=== PATIENT | female | born 1990 | race Caucasian/White ===

== ENCOUNTER 2016-06-12 04:15 | Emergency (ER) | payer MEDICAID ==
--- NOTE | 2016-06-12 08:15 | PD ---
HPI Chief Complaint Chronic IV drug use, wants to get into rehabilitation and needs an ultrasound to do so. She presents here to get that ultrasound so she can get into the rehabilitation facility Date Seen: Jun 12, 2016 Travel History International Travel<30 Days: No Contact w/Intl Traveler<30Days: No Known Affected Area: No History of Present Illness HPI Patient is a 27 week intrauterine who has a long-standing history of IV and oral drug use. She presents from out of town on the was in [place] and was relocated here. She has had the some care in [place] but minimal and disorganized. She presents to get an ultrasound to document viability before she can get into the rehabilitation facility and get off drugs. Patient admits to using IV heroin since the age of 12 and she used to just a few hours ago. Also takes Dilaudid on a regular basis. She states the baby is moving actively she's had no problem with her so far denies bleeding rupture the membranes or abdominal pain. heart tones are within normal limits and the strip is reactive now Para: 2 : 3 History Past Medical History Narrative Medical Hepatitis C, as a result of long-standing IV drug use Obstetric History Obstetric History 2 vaginal deliveries Social History Alcohol Use: Yes Tobacco Use: Yes Substance Abuse: Yes Allergies-Medications Comments no Known allergies Review of Systems General / Constitutional: No: Fever, Weight Gain, Chills, Other Physical Exam Narrative GENERAL: Well-nourished, well-developed patient. SKIN: Warm and dry. HEAD: Normocephalic and atraumatic. EYES: No scleral icterus. No injection or drainage. ENT: No nasal drainage noted. Mucous membranes pink. Airway patent. NECK: Supple, trachea midline. No JVD. CARDIOVASCULAR: Regular rate and rhythm without murmurs, gallops, or rubs. RESPIRATORY: Breath sounds equal bilaterally. No accessory muscle use. BREASTS: Bilateral exam showed no masses , no retractions, no nipple discharge. ABDOMEN/GI: Abdomen soft, non-tender, bowel sounds present, no rebound, no guarding Gravid to [28-] weeks size Fundal Height: [27 cm-] GENITOURINARY: External Genitalia: intact and normal in appearance BUS glands: [-] Cervix: [-] Not examined Dilatation: [-] Effacement: [-] Station: [-] Presentation: [-] Membranes: [intact ] Uterine Contractions: [-none] FHT's: Category: [1-] Baseline: [133-] Reactive: [-yes] Variability: [-] Decels: [none-] EXTREMITIES: No cyanosis or edema. BACK: Nontender without obvious deformity. No CVA tenderness. NEUROLOGICAL: Awake and alert. Motor and sensory grossly within normal limits. Five out of 5 muscle strength in all muscle groups. Normal speech. Data Data Orders Diet Regular Basic (06/12/16 Breakfast) Us Ob Limited (06/12/16 ) Mrsa Pcr Surveillance (06/12/16 06:59) [facility] Medical Record Reviewed: No Interpretation(s) 27 week intrauterine with long-standing IV drug use and abuse, she presents basically to get an ultrasound to document viability so she can get into drug rehabilitation, her last use of IV heroin when was this morning Plan Plan to order the ultrasound to get the patient into rehabilitation as soon as possible, also these organizations will facilitate patient getting into care as well Diagnosis Diagnosis: Primary Impression: Drug abuse during Disposition: 70 TRANSFER TO OTHER FACILITY Condition: Stable Patient Instructions: General Instructions Departure Forms: Tests/Procedures Kristian Alarcon II, MD Jun 12, 2016 08:15
[2016-08-03] MEDS ORDERED: BUPR2SUB SL (15:24)
== END 2016-06-12 09:37 | disposition short-term general hospital (02) ==
LOC: HOBED 04:15
DX: O99.322 Drug use complicating pregnancy, second trimester (principal); F11.10 Opioid abuse, uncomplicated; B19.20 Unspecified viral hepatitis C without hepatic coma; Z72.0 Tobacco use; Z3A.27 27 weeks gestation of pregnancy
CPT/HCPCS: 76816; 87641

== ENCOUNTER → 2016-08-10 | Outpatient (CLI) | payer OTHER ==
[~2016-08-10] MED LIST: BUPR2SUB SL; BUPR8SUB SL; CALNTAB PO; CEPH500C PO; IBUP800T23 PO; SENN1TAB PO
== END ==
LOC: HPND 13:44
PROVIDERS: ATTEND Obstetrics & Gynecology
DX: O99.323 Drug use complicating pregnancy, third trimester (principal); O09.33 Supervision of pregnancy with insufficient antenatal care, third trimester; O98.513 Other viral diseases complicating pregnancy, third trimester
CPT/HCPCS: 76811

== ENCOUNTER 2016-09-04 04:08 | Inpatient (IN) | payer OTHER ==
[2016-09-04] VITALS (72 sets, daily range): BP systolic 107–149; BP diastolic 48–87; PULSE 56–109; RESP 16–20; TEMP 97.9–98.6; O2SAT 100
[~2016-09-04] VITALS: Ht 160 cm; Wt 72.6 kg
[~2016-09-04 04:08] MED LIST changes: -BUPR8SUB SL; -CALNTAB PO; -CEPH500C PO; -IBUP800T23 PO; -SENN1TAB PO
[2016-09-04] MEDS ORDERED: LACTATED RINGER'S 1000 ML INJ 1,000 ML IV PRN (04:54)
--- NOTE | 2016-09-04 04:54 | PD ---
HPI Chief Complaint Contractions Date Seen: Sep 04, 2016 Travel History International Travel<30 Days: No Contact w/Intl Traveler<30Days: No Known Affected Area: No History of Present Illness HPI 26-year-old female who is at 39 weeks 2 days based on limited criteria this patient has had intermittent care. She moved from [place] to [facility] and has an extensive history of IV drug use including heroin and Dilaudid this has been presently men maintain on Subutex 8 mg a day. He has a history of a cardiac ablation after some sort of cardiac event during her induction and [facility] 7 years ago. Group B strep is positive she she has a history of MRSA. Para: 2 : 5 : 2 History Past Medical History Narrative Medical Bipolar Cardiac ablation Hepatitis C positive Long-standing history of IV drug use Obstetric History Obstetric History Spontaneous vaginal delivery 2 Past Surgical History Surgical History: No Previous Surgery Family History Family History: Negative Social History Alcohol Use: No Tobacco Use: No Substance Abuse: No Allergies-Medications (Allergen,Severity, Reaction): Coded Allergies: No Known Allergies (Unverified , 08/03/16) Home Meds Active Scripts Vit W/ Fe Polysacch C (Vitafol Ultra 29-0.6-0.4-200 mg)1 Cap Cap Sample #2 Prov:Shereen Grossman 08/03/16 Reported Medications Buprenorphine 2 Mg Subl2 Mg SL BID 08/03/16 Review of Systems Except as stated in HPI: all other systems reviewed are Neg Physical Exam Narrative GENERAL: Well-nourished, well-developed patient. SKIN: Warm and dry. HEAD: Normocephalic and atraumatic. EYES: No scleral icterus. No injection or drainage. ENT: No nasal drainage noted. Mucous membranes pink. Airway patent. NECK: Supple, trachea midline. No JVD. CARDIOVASCULAR: Regular rate and rhythm without murmurs, gallops, or rubs. RESPIRATORY: Breath sounds equal bilaterally. No accessory muscle use. BREASTS: Bilateral exam showed no masses , no retractions, no nipple discharge. ABDOMEN/GI: Abdomen soft, non-tender, bowel sounds present, no rebound, no guarding Gravid to [-] weeks size Fundal Height: [-38] GENITOURINARY: External Genitalia: intact and normal in appearance BUS glands: [Normal-] Cervix: [-4] Dilatation: [4 cm] Effacement: [-90] Station: [-1-] Presentation: [-] Vertex Membranes: Intact Uterine Contractions: [Every 2 minutes-] FHT's: Category: [-1] Baseline: [-140] Reactive: [Moderate-] Variability: [-Moderate] Decels: [-Absent] EXTREMITIES: No cyanosis or edema. BACK: Nontender without obvious deformity. No CVA tenderness. NEUROLOGICAL: Awake and alert. Motor and sensory grossly within normal limits. Five out of 5 muscle strength in all muscle groups. Normal speech. Data Data Vital Signs Reviewed: Yes Orders Ob (2e) Additional Admit Info (09/04/16 04:44) MDM Plan 26-year-old at 39 weeks and 2 days admitted in early labor with a history of MRSA, bipolar disease, cardiac ablation, IV drug use, and positive hepatitis C We'll treat her group B strep with penicillin intrapartum EEG Diagnosis Diagnosis: Primary Impression: Irregular uterine contractions Additional Impressions: IV drug abuse complicating complicated by subutex maintenance, antepartum Hepatitis C virus carrier state Positive GBS test Mary Benítez MD Sep 04, 2016 04:54
[2016-09-04] MEDS ORDERED: OXYTOCIN 30 UNITS-500ML PREMIX 500 ML IV ONE (05:00)
[2016-09-04] MEDS ORDERED: LIDOCAINE HCL 1% 50 ML VIAL INFIL PRN (05:00)
[2016-09-04] MEDS ORDERED: CITRIC ACID-SODIUM CITRATE LIQ 30 ML UDC PO SCH (05:00)
[2016-09-04] MEDS ORDERED: SODIUM CHLORID 0.9% 500 ML INJ 500 ML IV PRN (05:00)
[2016-09-04] MEDS ORDERED: LIDOCAINE HCL 1% 50 ML VIAL I-DERMAL PRN (05:00)
[2016-09-04] MEDS ORDERED: ONDANSETRON HCL 4 MG/2 ML VIAL IV PRN (05:00)
[2016-09-04] MEDS ORDERED: MINERAL OIL 10 ML VIAL TOPICAL PRN (05:00)
[2016-09-04] MEDS ORDERED: PENICILLIN G POTASSIUM INJ 5,000,000 UNITS in SODIUM CHLORIDE 0.9% INJ 100 ML IV ONE (05:00)
--- NOTE | 2016-09-04 05:01 | HHI.HP ---
History & Physical H&P HPI Chief Complaint Contractions Date Seen: Sep 04, 2016 Travel History International Travel<30 Days: No Contact w/Intl Traveler<30Days: No Known Affected Area: No History of Present Illness HPI 26-year-old female who is at 39 weeks 2 days based on limited criteria this patient has had intermittent care. She moved from [place] to [facility] and has an extensive history of IV drug use including heroin and Dilaudid this has been presently men maintain on Subutex 8 mg a day. He has a history of a cardiac ablation after some sort of cardiac event during her induction and [facility] 7 years ago. Group B strep is positive she she has a history of MRSA. Para: 2 : 5 : 2 History Past Medical History Narrative Medical Bipolar Cardiac ablation Hepatitis C positive Long-standing history of IV drug use Obstetric History Obstetric History Spontaneous vaginal delivery 2 Past Surgical History Surgical History: No Previous Surgery Family History Family History: Negative Social History Alcohol Use: No Tobacco Use: No Substance Abuse: No Allergies-Medications (Allergen,Severity, Reaction): Coded Allergies: No Known Allergies (Unverified , 08/03/16) Home Meds Active Scripts Vit W/ Fe Polysacch C (Vitafol Ultra 29-0.6-0.4-200 mg)1 Cap Cap Sample #2 Prov:Shereen Grossman 08/03/16 Reported Medications Buprenorphine 2 Mg Subl2 Mg SL BID 08/03/16 Review of Systems Except as stated in HPI: all other systems reviewed are Neg Physical Exam Narrative GENERAL: Well-nourished, well-developed patient. SKIN: Warm and dry. HEAD: Normocephalic and atraumatic. EYES: No scleral icterus. No injection or drainage. ENT: No nasal drainage noted. Mucous membranes pink. Airway patent. NECK: Supple, trachea midline. No JVD. CARDIOVASCULAR: Regular rate and rhythm without murmurs, gallops, or rubs. RESPIRATORY: Breath sounds equal bilaterally. No accessory muscle use. BREASTS: Bilateral exam showed no masses , no retractions, no nipple discharge. ABDOMEN/GI: Abdomen soft, non-tender, bowel sounds present, no rebound, no guarding Gravid to [-] weeks size Fundal Height: [-38] GENITOURINARY: External Genitalia: intact and normal in appearance BUS glands: [Normal-] Cervix: [-4] Dilatation: [4 cm] Effacement: [-90] Station: [-1-] Presentation: [-] Vertex Membranes: Intact Uterine Contractions: [Every 2 minutes-] FHT's: Category: [-1] Baseline: [-140] Reactive: [Moderate-] Variability: [-Moderate] Decels: [-Absent] EXTREMITIES: No cyanosis or edema. BACK: Nontender without obvious deformity. No CVA tenderness. NEUROLOGICAL: Awake and alert. Motor and sensory grossly within normal limits. Five out of 5 muscle strength in all muscle groups. Normal speech. Data Data Vital Signs Reviewed: Yes Orders Ob (2e) Additional Admit Info (09/04/16 04:44) MDM Plan 26-year-old at 39 weeks and 2 days admitted in early labor with a history of MRSA, bipolar disease, cardiac ablation, IV drug use, and positive hepatitis C We'll treat her group B strep with penicillin intrapartum EEG Diagnosis Diagnosis: Primary Impression: Irregular uterine contractions Additional Impressions: IV drug abuse complicating complicated by subutex maintenance, antepartum Hepatitis C virus carrier state Positive GBS test Admit for labor with PCN prophylaxis Hep C RNA quant Urine tox Mary Benítez MD Sep 04, 2016 05:00
[2016-09-04] MEDS ORDERED: BUPR8SUB SL (05:06)
[2016-09-04] MEDS ORDERED: CALNTAB PO (05:06)
[2016-09-04] MEDS ORDERED: SODIUM CHLOR 0.9% 1000 ML INJ 1,000 ML IV PRN (05:14)
[2016-09-04] MEDS: LACTATED RINGER'S 1000 ML INJ 1,000 ML IV SCH ×3 (05:15→09:29)
[2016-09-04 05:32] LABS: AUTOMATED NEUTROPHIL # 9.1 TH/MM3 (1.8-7.7); BASOPHIL % 0.4 % (0.0-2.0); EOSINOPHIL # 0.1 TH/MM3 (0-0.4); EOSINOPHIL % 0.9 % (0.0-4.0); HEMATOCRIT 30.6 % (35.0-46.0); LYMPHOCYTE # 1.5 TH/MM3 (1.0-4.8); MEAN CELL VOLUME 68.9 FL (80.0-100.0); MEAN CORPUSCULAR HEMOGLOBIN 23.4 PG (27.0-34.0); MEAN CORPUSCULAR HGB CONC 33.9 % (32.0-36.0); MONO % 6.1 % (0.0-8.0); NEUT % 79.6 % (16.0-70.0); PLATELET COUNT 269 TH/MM3 (150-450); RED BLOOD COUNT 4.44 MIL/MM3 (4.00-5.30); RED CELL DISTRIBUTION WIDTH 15.8 % (11.6-17.2); WHITE BLOOD COUNT 11.4 TH/MM3 (4.0-11.0)
[2016-09-04 05:45] LABS: HEMO FLAGS AUTO DIFF
[2016-09-04 05:56] LABS: AMPHETAMINE, URINE NEG (NEG); BARBITURATES, URINE NEG (NEG); COCAINE, URINE POS (NEG)
[2016-09-04 06:08] LABS: SCAN/DIFF AUTO DIFF CONFIRMED
[2016-09-04 06:31] LABS: BACTERIA, URINE RARE /hpf; BLOOD, URINE NEG (NEG); COMMENT (UR) CULT NOT INDICATED; CULTURE IF INDICATED CULT NOT INDICATED; GLUCOSE,URINE NEG (NEG); KETONE, URINE NEG (NEG); MUCUS URINE FEW /lpf (OCC); NITRITE,URINE NEG (NEG); SQUAMOUS EPITHELIAL CELL URINE 9 /hpf (0-5); TRANSITIONAL EPI CELLS, URINE <1 /hpf; URINE COLOR YELLOW (YELLW/STRAW)
[2016-09-04] MEDS ORDERED: DO NOT ADMINISTER ANTICOAGULANTS XX PRN (06:45)
[2016-09-04] MEDS ORDERED: NO SYSTEM NARCOTICS XX PRN (06:45)
[2016-09-04] MEDS ORDERED: ePHEDrine/NS 25 MG/5 ML SYR IV PRN (06:45)
[2016-09-04] MEDS ORDERED: fentaNYL 2MCG-BUPIV 0.125% 100 ML EPIDURAL SCH (06:45)
--- NOTE | 2016-09-04 07:47 | PD.LABORPN ---
Subjective Subjective Patient seen and examined. Resting comfortably in bed. No complaints of pain at this time. She is looking forward to the baby arriving soon. Objective Vital Signs Vital Signs Date Time Temp Pulse Resp B/P Pulse Ox O2 Delivery O2 Flow Rate FiO2 09/04/16 07:15 16 09/04/16 07:10 76 09/04/16 07:05 82 09/04/16 07:00 75 118/69 09/04/16 07:00 68 09/04/16 06:55 61 09/04/16 06:51 76 120/52 09/04/16 06:50 109 09/04/16 06:45 62 126/61 09/04/16 06:40 73 118/57 09/04/16 06:35 62 123/58 09/04/16 06:34 18 09/04/16 06:31 82 116/57 09/04/16 06:30 18 09/04/16 06:26 71 124/59 09/04/16 06:20 92 118/73 09/04/16 06:16 67 132/61 09/04/16 06:15 71 129/75 09/04/16 06:15 18 09/04/16 06:15 73 09/04/16 06:10 77 139/75 09/04/16 06:05 89 129/78 09/04/16 06:00 98.0 09/04/16 05:45 18 09/04/16 05:45 85 149/48 Objective Pelvic Exam: Cervix: Thin Dilatation: 5 Effacement: 90 Station: -2 Presentation: Vertex Membranes: Intact Uterine Contractions: Every 3-5 minutes FHT's: Category: 1 Baseline: 155 Reactive: Up to 170 Variability: Moderate Decels: none Assessment/Plan Problem List: (1) IV drug abuse complicating (2) Hepatitis C virus carrier state (3) complicated by subutex maintenance, antepartum (4) Intrauterine (5) Positive GBS test Assessment and Plan 26-year-old at 39/2 weeks gestational age currently laboring 1. Intrauterine : GBS positive -Continuous heart tracing: Category 1 -Continuous monitoring for contractions: Every 3-5 minutes -Pain control plan with epidural -Continue expectant management -Anticipate AROM 2. Drug abuse during -Manage pain appropriately during and following delivery 3. Hep C positive -Will inform pediatric team WDW: Robert Treviño MD R2 Sep 04, 2016 07:47
[2016-09-04] MEDS ORDERED: PENICILLIN G POTASSIUM INJ 2,500,000 UNITS in SODIUM CHLORIDE 0.9% INJ 100 ML IV SCH (09:00)
[2016-09-04 09:01] LABS: MRSA PCR NEGATIVE (NEGATIVE); STAPH AUREUS PCR NEGATIVE (NEGATIVE)
--- NOTE | 2016-09-04 09:17 | PD.LABORPN ---
Subjective Subjective Patient seen and examined. AROM procedure was explained to the patient, she agreed with having it performed. AROM was successful and the fluid was clear. She reports good movement. She denies noticing any contractions due to the epidural. Objective Vital Signs Vital Signs Date Time Temp Pulse Resp B/P Pulse Ox O2 Delivery O2 Flow Rate FiO2 09/04/16 08:25 85 09/04/16 08:20 70 09/04/16 08:15 98.6 09/04/16 08:15 69 121/60 09/04/16 08:15 16 09/04/16 08:15 70 09/04/16 08:10 67 09/04/16 08:05 65 09/04/16 08:00 70 118/61 09/04/16 08:00 64 09/04/16 07:55 63 17 09/04/16 07:50 62 09/04/16 07:46 66 113/55 09/04/16 07:15 16 09/04/16 07:10 76 09/04/16 07:05 82 09/04/16 07:00 75 118/69 09/04/16 07:00 68 09/04/16 06:55 61 09/04/16 06:51 76 120/52 09/04/16 06:50 109 09/04/16 06:45 62 126/61 09/04/16 06:40 73 118/57 09/04/16 06:35 62 123/58 09/04/16 06:34 18 09/04/16 06:31 82 116/57 09/04/16 06:30 18 09/04/16 06:26 71 124/59 09/04/16 06:20 92 118/73 09/04/16 06:16 67 132/61 09/04/16 06:15 71 129/75 09/04/16 06:15 18 09/04/16 06:15 73 09/04/16 06:10 77 139/75 09/04/16 06:05 89 129/78 09/04/16 06:00 98.0 09/04/16 05:45 18 09/04/16 05:45 85 149/48 Objective Pelvic Exam: Cervix: Thin Dilatation: 6 Effacement: 100% Station: -2 Presentation: Vertex Membranes: AROM Uterine Contractions: Every 2 to 5 minutes FHT's: Category: 1 Baseline: 155 Reactive: Up to 170 Variability: Moderate Decels: None Assessment/Plan Problem List: (1) IV drug abuse complicating (2) Hepatitis C virus carrier state (3) complicated by subutex maintenance, antepartum (4) Intrauterine (5) Positive GBS test Assessment and Plan 26-year-old at 39/2 weeks gestational age currently laboring 1. Intrauterine : GBS positive, AROM -Continuous heart tracing: Category 1 -Continuous monitoring for contractions: Every 3-5 minutes -Pain control plan with epidural -Continue expectant management - AROM performed successfully 2. Drug abuse during -Manage pain appropriately during and following delivery 3. Hep C positive -Will inform pediatric team WDW: Robert Treviño MD R2 Sep 04, 2016 09:17
[2016-09-04] MEDS ORDERED: OXYTOCIN 30 UNITS-500ML PREMIX 500 ML IV SCH (11:00)
--- NOTE | 2016-09-04 11:21 | PD.OB.DELI ---
Delivery Date: Sep 04, 2016 Anesthesia: Epidural Episiotomy: None Vaginal Delivery: Normal, Spontaneous Presentation: Occiput anterior Nuchal Cord: None Delayed cord clamping (45 sec): Yes Infant: Female One Minute : 9 Five Minute : 9 Weight: 3505 Care: Suctioned, Spontaneous crying, Responded to stimulation Placenta: Spontaneous delivery, Intact, 3 vessel cord Laceration: 1 deg (perilabial 1st degree, no stitch needed) Additional Information Baby was delivered spontaneously with delivery team present. Placenta delivered spontaneously. No stitches needed. Robert Delatorre MD R2 Sep 04, 2016 11:21
[2016-09-04] MEDS ORDERED: SODIUM CHLORIDE 0.9% FLUSH 10 ML FLUSH IV FLUSH PRN (11:30)
[2016-09-04] MEDS ORDERED: IBUPROFEN 600 MG TAB PO PRN (11:30)
[2016-09-04] MEDS ORDERED: BENZOCAINE 20% TOPICAL SPRAY 60 ML CAN TOPICAL PRN (11:30)
[2016-09-04] MEDS ORDERED: ALUMINUM/MAGNESIUM/SIMETH 30 ML CUP PO PRN (11:30)
[2016-09-04] MEDS ORDERED: DOCUSATE SODIUM 50 MG/SENNA 8.6 MG TAB PO PRN (11:30)
[2016-09-04] MEDS ORDERED: WITCH HAZEL 50%/GLYCERIN 12.5% 40 PAD JAR TOPICAL PRN (11:30)
--- NOTE | 2016-09-04 14:05 | EKG ---
Date Performed: 09/04/2016 Time Performed: 05:14:51 PTAGE: 26 years EKG: Sinus rhythm NORMAL ECG NO PREVIOUS TRACING DOCTOR: Cl Kohli Interpretating Date/Time 09/04/2016 14:01:45
[2016-09-04 15:04] LABS: RAPID PLASMA REAGIN SCREEN NON-REACTIVE (NON-REACTVE)
[2016-09-04] MEDS ORDERED: DIPHTH/TETANUS/ACEL PERTUSSIS (BOOSTER) 0.5 ML VIAL/PFS IM ONE (16:00)
[2016-09-04] MEDS ORDERED: NICOTINE 14 MG/24 HR PATCH TD SCH (16:00)
[2016-09-04] MEDS ORDERED: MEASLES, MUMPS, RUBELLA VACCINE 0.5 ML VIAL SQ ONE (16:00)
[2016-09-04] MEDS ORDERED: SODIUM CHLORIDE 0.9% FLUSH 10 ML FLUSH IV FLUSH SCH (21:00)
[2016-09-04] MEDS ORDERED: REMOVE OLD NICODERM (NICOTINE) PATCH TD SCH (21:00)
[2016-09-04] MEDS ORDERED: ZOLPIDEM TARTRATE 5 MG TAB PO PRN (21:00)
[2016-09-04] MEDS: ACETAMINOPHEN 325 MG TAB PO PRN (22:39)
[2016-09-04] MEDS: IBUPROFEN 800 MG TAB PO PRN (22:39)
[2016-09-05] MEDS ORDERED: KETOROLAC TROMETHAMINE 60 MG/2 ML (IM) VIAL IM SCH
[2016-09-05 01:45] LABS: AMPHETAMINE, URINE NEG (NEG); BARBITURATES, URINE NEG (NEG)
[2016-09-05 01:50] LABS: COCAINE, URINE POS (NEG)
[2016-09-05] MEDS: ACETAMINOPHEN 325 MG TAB PO PRN ×2 (05:08→11:24)
[2016-09-05] MEDS: IBUPROFEN 800 MG TAB PO PRN ×2 (05:08→11:24)
[2016-09-05] MEDS ORDERED: KETOROLAC TROMETHAMINE 60 MG/2 ML (IM) VIAL IM PRN (07:00)
--- NOTE | 2016-09-05 07:23 | HHI.OB ---
Subjective Post Day: 1 Remarks day # 1. AFVSS overnight. Pain controlled. Decreased lochia. Denies dysuria. No breast tenderness. She is feeding the baby via bottle. Appetite good. No nausea or vomiting. Positive flatus. Positive bowel movement. Ambulating well. Denies calf pain, shortness of breath, or cough. Currently baby is in NICU and is being placed on adoption. Otherwise, she is doing well this morning and has no other complaints. Objective Vitals/I&O Vital Signs Date Time Temp Pulse Resp B/P Pulse Ox O2 Delivery O2 Flow Rate FiO2 09/04/16 20:00 97.9 74 20 144/78 09/04/16 16:00 98.2 62 18 125/81 09/04/16 13:46 56 135/69 09/04/16 13:30 16 09/04/16 13:30 61 135/79 09/04/16 13:15 63 121/66 09/04/16 13:00 71 18 134/73 09/04/16 12:46 73 127/66 09/04/16 12:30 63 134/69 09/04/16 12:15 71 135/70 09/04/16 12:00 18 09/04/16 12:00 75 115/87 09/04/16 11:48 98.0 09/04/16 11:45 59 127/76 09/04/16 11:31 65 132/73 09/04/16 11:30 20 09/04/16 11:16 57 139/80 09/04/16 11:05 75 100 09/04/16 11:00 76 09/04/16 11:00 65 140/79 100 09/04/16 10:55 72 09/04/16 10:50 80 09/04/16 10:45 67 125/79 09/04/16 10:45 65 09/04/16 10:33 20 09/04/16 10:30 74 09/04/16 10:30 64 123/74 09/04/16 10:25 69 09/04/16 10:20 62 09/04/16 10:15 66 112/59 09/04/16 10:15 60 09/04/16 10:10 57 09/04/16 10:05 62 09/04/16 10:00 62 16 107/49 09/04/16 10:00 62 09/04/16 09:55 62 09/04/16 09:50 64 09/04/16 09:45 65 108/57 09/04/16 09:45 63 09/04/16 09:40 68 09/04/16 09:35 63 09/04/16 09:30 93 09/04/16 09:30 84 116/71 09/04/16 09:20 98 09/04/16 09:15 103 119/60 09/04/16 09:10 80 09/04/16 09:05 71 09/04/16 09:00 67 09/04/16 09:00 17 09/04/16 09:00 69 121/56 09/04/16 08:55 80 09/04/16 08:50 74 09/04/16 08:45 76 09/04/16 08:45 73 118/59 09/04/16 08:25 85 09/04/16 08:20 70 09/04/16 08:15 98.6 09/04/16 08:15 69 121/60 09/04/16 08:15 16 09/04/16 08:15 70 09/04/16 08:10 67 09/04/16 08:05 65 09/04/16 08:00 70 118/61 09/04/16 08:00 64 09/04/16 07:55 63 17 09/04/16 07:50 62 09/04/16 07:46 66 113/55 Objective Remarks GENERAL: Well-nourished, well-developed patient. CARDIOVASCULAR: Regular rate and rhythm without murmurs, gallops, or rubs. RESPIRATORY: Breath sounds equal bilaterally. No accessory muscle use. ABDOMEN/GI: Abdomen soft, non-tender. Fundus: Firm, non-tender at umbilicus. GENITOURINARY: Light to moderate bleeding. EXTREMITIES: No cyanosis or edema, non-tender, without signs of DVT. Medications and IVs Current Medications Medications (Trade) Dose Ordered Sig/Aidan Route Start Time Stop Time Status Last Admin Lactated Ringer's 1,000 ml @ 125 mls/hr Q8H IV 09/04/16 04:54 09/04/16 09:29 Lactated Ringer's 1,000 ml @ 3,000 mls/hr Q20M PRN IV 09/04/16 04:54 Sodium Chloride 500 ml @ 1,000 mls/hr ONCE PRN IV 09/04/16 05:00 (NS 1000 ml Inj) 1,000 ml @ 100 mls/hr Q10H PRN IV 09/04/16 05:14 (Zofran Inj) 4 mg Q6H PRN IV 09/04/16 05:00 (fentaNYL INJ) 50 mcg Q1H PRN IV PUSH 09/04/16 05:00 Fentanyl Citrate 100 mcg 100 mcg Q1H PRN IV PUSH 09/04/16 05:00 (Pfizerpen-G Inj/ NS Inj) 100 ml @ 200 mls/hr Q4H IV 09/04/16 09:00 09/04/16 09:28 Mineral Oil 10 ml 10 ml UNSCH PRN TOPICAL 09/04/16 05:00 Fentanyl/ Bupivacaine HCl 100 ml @ 0 mls/hr TITRATE EPIDURAL 09/04/16 06:45 (Pitocin 30 Units-NS 500 ml Premix) 500 ml @ 0 mls/hr TITRATE IV 09/04/16 11:00 (NS Flush) 2 ml BID IV FLUSH 09/04/16 21:00 (NS Flush) 2 ml UNSCH PRN IV FLUSH 09/04/16 11:30 (Tylenol) 650 mg Q4H PRN PO 09/04/16 11:30 09/05/16 05:08 (Americaine 20% Top Spr) 1 spray Q4H PRN TOPICAL 09/04/16 11:30 09/04/16 17:05 (Tucks Pads) 1 applic QID PRN TOPICAL 09/04/16 11:30 09/04/16 17:04 (Jacque-Colace) 2 tab Q12H PRN PO 09/04/16 11:30 (Ambien) 5 mg HS PRN PO 09/04/16 21:00 (Mag-Al Plus Susp Liq) 15 ml Q8H PRN PO 09/04/16 11:30 Miscellaneous Information 1 HS TD 09/04/16 21:00 (Habitrol 14 Mg Patch.24 Hr) 1 patch DAILY TD 09/04/16 16:00 09/04/16 17:05 (Motrin) 800 mg Q6H PRN PO 09/04/16 22:30 09/05/16 05:08 (Toradol Inj) 30 mg Q6HR PRN IM 09/05/16 07:00 09/10/16 06:59 Assessment/Plan Problem List: (1) IV drug abuse complicating (2) Hepatitis C virus carrier state (3) complicated by subutex maintenance, antepartum (4) Intrauterine (5) Positive GBS test (6) care following vaginal delivery Assessment and Plan 26 y/o female who is PPD# 1 s/p . -Continue routine care. -Percocet and Motrin PRN pain. -Encouraged OOB. Advised pelvic rest for 6 wks. -Will need a f/u appt. within 6 wks. -Re: ctrl, she is undecided. -D/c today or tomorrow. wdw OB attending Robert Delatorre MD R2 Sep 05, 2016 07:22
[2016-09-05] MEDS ORDERED: NICOTINE 14 MG/24 HR PATCH TD SCH (09:00)
[2016-09-05] MEDS ORDERED: SENN1TAB PO (10:01)
[2016-09-05] MEDS ORDERED: IBUP800T23 PO (10:01)
--- NOTE | 2016-09-05 10:02 | HHI.DCPOC ---
Discharge Care Plan Diagnosis: (1) care following vaginal delivery (2) Intrauterine (3) IV drug abuse complicating (4) Hepatitis C virus carrier state Report Symptoms to Your Doctor -Temperate above 100.5 degrees -Redness, of incision or excessive or foul smelling drainage -Unusual pain or calf pain -Increased vaginal bleeding -Painful or difficulty urinating -Feelings of extreme sadness or anxiety after 2 weeks Goals to Promote Your Health * To prevent worsening of your condition and complications * To maintain your health at the optimal level Follow up with OB in 6 weeks Directions to Meet Your Goals Take your medications as prescribed Follow your dietary instruction Follow activity as directed Ensure plenty of rest for recovery Drink fluids for hydration Keep your appointments as scheduled Take your immunizations and boosters as scheduled If your symptoms worsen call your PCP, if no PCP go to Urgent Care Center or Emergency Room Smoking is Dangerous to Your Health. Avoid second hand smoke Call the 24-hour crisis hotline for domestic abuse at Robert Delatorre MD R2 Sep 05, 2016 10:02
[2016-09-06 23:54] LABS: HCV RNA PCR LOGIU/ML 6.89 (())
[2016-09-07 18:21] LABS: BATH SALTS (MDPV) UR NEG (NEG); ECSTASY (MDMA) UR NEG (NEG); HEROIN (6-ACETYLMORPHINE) UR NEG (NEG); K2 SPICE UR NEG (NEG); OBMETHADONE UR NEG (NEG); OXYCODONE (PERCODAN) NEG (NEG); PHENCYCLIDINE URINE NEG (NEG)
== END 2016-09-05 12:23 | disposition home or self-care (01) | DRG 774 ==
LOC: HOBED 04:08 → H2EA 04:46 → H1EA 16:24
PROVIDERS: ADMIT Obstetrics & Gynecology Obstetrics; ATTEND Obstetrics & Gynecology Obstetrics
PROC: 10E0XZZ Delivery of Products of Conception, External Approach (ICD-10-PCS; principal; 2016-09-04)
PROC: 00HU33Z Insertion of Infusion Device into Spinal Canal, Percutaneous Approach (ICD-10-PCS; 2016-09-04)
PROC: 3E0R3CZ (ICD-10-PCS; 2016-09-04)
DX: O99.824 Streptococcus B carrier state complicating childbirth (principal); O98.42 Viral hepatitis complicating childbirth; O70.0 First degree perineal laceration during delivery; Z3A.39 39 weeks gestation of pregnancy; Z37.0 Single live birth; B18.2 Chronic viral hepatitis C; O99.324 Drug use complicating childbirth; Z86.14 Personal history of Methicillin resistant Staphylococcus aureus infection
CPT/HCPCS: 80074; 80307; 81001; 85025; 86592; 86900; 86901; 86902; 87522; 87640; 87641; 93005; 99285; G0481; J2540; J7120

== ENCOUNTER 2016-11-30 23:23 | Emergency (ER) | payer OTHER ==
[~2016-11-30] VITALS: Ht 160 cm; Wt 65.9 kg
[~2016-11-30 23:23] MED LIST changes: -BUPR2SUB SL; +BUPR8SUB SL; +CALNTAB PO; +IBUP800T23 PO; +SENN1TAB PO
[2016-11-30 23:43] VITALS: BP 133/97; PULSE 81; RESP 16; TEMP 98.9; O2SAT 97
--- NOTE | 2016-12-01 00:15 | PD ---
HPI Chief Complaint: Psychiatric Symptoms Time Seen by Provider: 00:10 Travel History International Travel<30 days: No Contact w/Intl Traveler<30days: No Traveled to known affect area: No History of Present Illness HPI 26-year-old white female presents to emergency department under Park act by PD. The patient states that she had been in communication with a friend of hers from [place]. Her friend had recommended that she come up and get into detox. The patient has a history of IV substance abuse. There is some allegations that she may have had made suicidal statements. The patient is adamant that she has not made any suicidal statements. She does not feel suicidal or homicidal. She states that this is a manipulative action on her friend to force her to get in to treatment. The patient denies any overdose. She does admit to IV substance abuse as well as crack cocaine. She typically injects Dilaudid or heroin. She last used earlier today. She has not had a menstrual. In the last few months since she had delivered her baby. She had given her child up for adoption. She is also going through a custody rich with her 8-year-old child with her significant other. The patient reports that she will go into detox when she is ready. She had been on Suboxone during her but reverted back to IV substance abuse after her delivery. She denies any complaints at this time. [facility] Past Medical History Narrative Medical Anxiety, depression, IV drug abuse, hepatitis C Bipolar Disorder: Yes Anxiety: Yes Depression: Yes Tetanus Vaccination: > 5 Years ?: Not LMP: HAD A BABY IN [facility] NO PERIOD YET : 5 Para: 3 : 2 Past Surgical History Surgical History: No Previous Surgery Social History Alcohol Use: Yes (RARELY) Tobacco Use: No Substance Use: Yes (OPIOIDS) Allergies-Medications (Allergen,Severity, Reaction): Coded Allergies: No Known Allergies (Unverified , 09/04/16) Reported Meds & Prescriptions Reported Meds & Active Scripts Active Ibuprofen 800 Mg Tab 800 Mg PO Q6H PRN Review of Systems Except as stated in HPI: all other systems reviewed are Neg Psychiatric: Positive: Anxiety, Depression, Substance Abuse, No: Suicidal Ideations, Disorder of Thought, Mood Disorder, Homicidal Ideation Physical Exam Narrative GENERAL: Well-nourished, well-developed patient. SKIN: Warm and dry. Patient has multiple injection sites substance abuse. No signs of any wound infection. She has scattered areas of dermatitis associated with eczema. HEAD: Normocephalic and atraumatic. EYES: No scleral icterus. No injection or drainage. ENT: No nasal drainage noted. Mucous membranes pink. Airway patent. NECK: Supple, trachea midline. Moves head freely without obvious discomfort. CARDIOVASCULAR: Regular rate and rhythm without murmurs, gallops, or rubs. RESPIRATORY: Breath sounds equal bilaterally. No accessory muscle use. GASTROINTESTINAL: Abdomen soft, non-tender, nondistended. EXTREMITIES: No cyanosis or edema. BACK: Nontender without obvious deformity. No CVA tenderness. NEURO: Patient is alert and oriented. no sensorimotor deficits. Nonfocal. Normal speech. PSYCH: No delusions. No auditory or visual hallucinations. Data Data Last Documented VS Vital Signs Date Time Temp Pulse Resp B/P Pulse Ox O2 Delivery O2 Flow Rate FiO2 11/30/16 23:43 98.9 81 16 133/97 97 MDM Medical Decision Making Medical Screen Exam Complete: Yes Emergency Medical Condition: Yes Medical Record Reviewed: Yes Differential Diagnosis GENERAL: Well-nourished, well-developed patient. MDM: High Differential diagnoses: Schizophrenia, schizoaffective disorder, bipolar, anxiety, depression, adjustment reaction, mood disorder NOS, ODD, depressive disorder NOS, dementia, dementia with agitation, psychosis NOS, substance induced mood disorder, intermittent explosive disorder, Asperger syndrome, infection,electrolyte abnormality, malingering. Narrative Course Mental health screening discussed with the patient. Psychiatric screen ordered. The patient is been medically cleared. This is medical clearance for psychiatric admission, substance abuse Diagnosis Primary Impression: Medical clearance for psychiatric admission Additional Impression: Polysubstance abuse Condition: Gold Casanova Dec 01, 2016 00:15
[2016-12-01 00:30] LABS: BASOPHIL # 0.1 TH/MM3 (0-0.2); EOSINOPHIL # 0.3 TH/MM3 (0-0.4); EOSINOPHIL % 3.5 % (0.0-4.0); HEMATOCRIT 34.6 % (35.0-46.0); HEMO FLAGS DIFF FINAL; LYMPH % 26.4 % (9.0-44.0); LYMPHOCYTE # 2.2 TH/MM3 (1.0-4.8); MEAN CELL VOLUME 69.1 FL (80.0-100.0); MEAN CORPUSCULAR HEMOGLOBIN 23.3 PG (27.0-34.0); MEAN CORPUSCULAR HGB CONC 33.7 % (32.0-36.0); MONO % 8.9 % (0.0-8.0); NEUT % 60.2 % (16.0-70.0); PLATELET COUNT 307 TH/MM3 (150-450); RED CELL DISTRIBUTION WIDTH 20.2 % (11.6-17.2); WHITE BLOOD COUNT 8.3 TH/MM3 (4.0-11.0)
[2016-12-01 00:49] LABS: ALKALINE PHOSPHATASE 64 U/L (45-117); TOTAL BILIRUBIN ADULT 0.2 MG/DL (0.2-1.0)
[2016-12-01 00:52] LABS: ACETAMINOPHEN LESS THAN 2.0 MCG/ML (10.0-30.0); ALT (GPT) 26 U/L (10-53); ANION GAP 6 MEQ/L (5-15); AST (GOT) 23 U/L (15-37); BICARBONATE 28.4 MEQ/L (21.0-32.0); BLOOD UREA NITROGEN 8 MG/DL (7-18); CHLORIDE 108 MEQ/L (98-107); GLOMERULAR FILTRATION RATE 61 ML/MIN (>89); POTASSIUM 3.5 MEQ/L (3.5-5.1); SODIUM (NA) 142 MEQ/L (136-145)
[2016-12-01 02:09] LABS: AMPHETAMINE, URINE POS (NEG); BARBITURATES, URINE NEG (NEG); COCAINE, URINE POS (NEG)
[2016-12-01 02:10] LABS: BACTERIA, URINE RARE /hpf; BLOOD, URINE TRACE (NEG); COMMENT (UR) CULTURE INDICATED; CULTURE IF INDICATED CULTURE INDICATED; GLUCOSE,URINE NEG (NEG); HYALINE CAST, URINE 3 /lpf (RARE); KETONE, URINE NEG (NEG); MUCUS URINE FEW /lpf (OCC); NITRITE,URINE NEG (NEG); PH, URINE 5.5 (5.0-8.5); SQUAMOUS EPITHELIAL CELL URINE 2 /hpf (0-5); URINE COLOR YELLOW (YELLW/STRAW)
[2016-12-01] MEDS ORDERED: CEPH500C PO (02:35)
[2016-12-01 04:58] VITALS: BP 130/78; PULSE 77; RESP 18; O2SAT 99
[2016-12-01 06:00] VITALS: BP 138/87; PULSE 75; RESP 18; O2SAT 99
[2016-12-01 10:00] VITALS: BP 128/72; PULSE 69; RESP 18
--- NOTE | 2016-12-01 11:26 | PD ---
History of Present Illness Chief Complaint: Psychiatric Symptoms Time Seen by Provider: 10:45 Travel History International Travel<30 Days: No Contact w/Intl Traveler<30days: No Known affected area: No Legal Status Legal Status: Park Act Park Act Signed By: Jada Vicente History of Present Illness: This is a 26-year-old female brought in under a Park act for suicidal ideation. She has a long history of intravenous drug abuse. She would like to receive detox and rehabilitation for her drug abuse. She understands there is a facility for this type of treatment in [facility] and she has a friend who is trying to help her get that treatment. Somehow, law enforcement felt that she was suicidal and had made suicidal statements. Upon interview, the patient is calm and cooperative. However she is depressed and anxious. She admits to fleeting suicidal thoughts in the past. However, they are intermittent and inconsistent. At this time she is willing to contract for safety. At this time she is denying suicidal or homicidal ideation , plan or intent. At this time her cognition is intact and she has no psychotic symptoms. Therefore she is considered competent to make this agreement. This physician feels that her symptoms of depression and anxiety are primarily related to her substance abuse and therefore she must address the substance abuse issue before addressing the depression and anxiety. PFSH Past Medical History Bipolar Disorder: Yes Anxiety: Yes Depression: Yes Tetanus Vaccination: > 5 Years ?: Not LMP: HAD A BABY IN [facility] NO PERIOD YET : 5 Para: 3 : 2 Past Surgical History Surgical History: No Previous Surgery Psychiatric History Psychiatric History Hx Psychiatric Treatment: DENIES History of Inpatient Treatment: No Social History Hx Alcohol Use: Yes (RARELY) Hx Tobacco Use: No Hx Substance Use: No Substance Use Type: Nicotine/Cigarettes, Synth Opiates-Pain Pills Hx of Substance Use Treatment: No Allergies-Medications (Allergen,Severity, Reaction): Coded Allergies: No Known Allergies (Unverified , 09/04/16) Reported Meds & Prescriptions Reported Meds & Active Scripts Active Cephalexin 500 Mg Cap 500 Mg PO Q6H Ibuprofen 800 Mg Tab 800 Mg PO Q6H PRN Review of Systems Except as stated in HPI: all other systems reviewed are Neg Exam Alert: Yes [place]: Person, Place, Date, Situation Mood: Calm, Depressed Affect: Appropriate Speech: Clear Eye Contact: Normal Memory Intact: Immediate, Remote, Comment Suicidal: Ideation Insight/Judgement Adequate MDM Medical Decision Making Medical Record Reviewed: Yes Assessment/Plan This physician interviewed the patient and spoke with the patient's nurse. At this time she is calm and cooperative, denying suicidal or homicidal ideation, plan or intent. She is willing and even wanting to go to detox and rehabilitation. Her recent history of depressive symptoms and anxiety and fleeting suicidal ideation are felt to be the result of her circumstances, including her substance abuse. Despite the risk of releasing her from the Park act, this physician feels it is important for the patient to invest herself in substance abuse treatment. Orders Complete Blood Count With Diff (12/01/16 00:09) Comprehensive Metabolic Panel (12/01/16 00:09) Urinalysis - C+S If Indicated (12/01/16 00:09) Ed Urine Pregnancytest Poc (12/01/16 00:09) Psych Screen (12/01/16 00:09) Drug Screen, Random Urine (12/01/16 00:09) Alcohol (Ethanol) (12/01/16 00:09) Salicylates (Aspirin) (12/01/16 00:09) Tylenol (Acetaminophen) (12/01/16 00:09) Urine Culture (12/01/16 01:45) Diet Regular Basic (12/01/16 Breakfast) Results Vital Signs Date Time Temp Pulse Resp B/P Pulse Ox O2 Delivery O2 Flow Rate FiO2 12/01/16 10:00 69 18 128/72 Room Air 12/01/16 06:34 18 12/01/16 06:00 75 18 138/87 99 Room Air 12/01/16 04:58 77 18 130/78 99 Room Air 11/30/16 23:43 98.9 81 16 133/97 97 Laboratory Tests Test 12/01/16 12/01/16 00:15 01:45 White Blood Count 8.3 Red Blood Count 5.00 Hemoglobin 11.6 Hematocrit 34.6 Mean Corpuscular Volume 69.1 Mean Corpuscular Hemoglobin 23.3 Mean Corpuscular Hemoglobin 33.7 Concent Red Cell Distribution Width 20.2 Platelet Count 307 Mean Platelet Volume 9.0 Neutrophils (%) (Auto) 60.2 Lymphocytes (%) (Auto) 26.4 Monocytes (%) (Auto) 8.9 Eosinophils (%) (Auto) 3.5 Basophils (%) (Auto) 1.0 Neutrophils # (Auto) 5.0 Lymphocytes # (Auto) 2.2 Monocytes # (Auto) 0.7 Eosinophils # (Auto) 0.3 Basophils # (Auto) 0.1 CBC Comment DIFF FINAL Differential Comment Sodium Level 142 Potassium Level 3.5 Chloride Level 108 Carbon Dioxide Level 28.4 Anion Gap 6 Blood Urea Nitrogen 8 Creatinine 1.09 Estimat Glomerular Filtration 61 Rate Random Glucose 105 Calcium Level 8.7 Total Bilirubin 0.2 Aspartate Amino Transf 23 (AST/SGOT) Alanine Aminotransferase 26 (ALT/SGPT) Alkaline Phosphatase 64 Total Protein 7.4 Albumin 3.2 Salicylates Level 3.4 Acetaminophen Level LESS THAN 2.0 Ethyl Alcohol Level LESS THAN 3 Urine Color YELLOW Urine Turbidity HAZY Urine pH 5.5 Urine Specific [place] 1.025 Urine Protein 30 Urine Glucose (UA) NEG Urine Ketones NEG Urine Occult Blood TRACE Urine Nitrite NEG Urine Bilirubin NEG Urine Urobilinogen 2.0 Urine Leukocyte Esterase SMALL Urine RBC 2 Urine WBC 12 Urine Squamous Epithelial 2 Cells Urine Bacteria RARE Urine Hyaline Casts 3 Urine Mucus FEW Microscopic Urinalysis Comment CULTURE INDICATED Urine Opiates Screen POS Urine Barbiturates Screen NEG Urine Amphetamines Screen POS Urine Benzodiazepines Screen NEG Urine Cocaine Screen POS Urine Cannabinoids Screen NEG Date/Time Procedure Status Source Growth 12/01/16 01:45 Urine Culture Worksheet Urine Clean Catch Pending Diagnosis Primary Impression: Adjustment disorder with depressed mood Additional Impression: Opiate abuse, continuous Departure Forms: Tests/Procedures Patient Instructions: General Instructions, Mood Disorders (ED), Polysubstance Abuse (ED) Prescriptions Cephalexin 500 Mg [id number] Mg PO Q6H #28 CAP Prov:Pierre العلي MD 12/01/16 Disposition: 01 DISCHARGE HOME Condition: Stable Problem Qualifiers Bebeto Negrete MD Dec 01, 2016 11:26
== END 2016-12-01 13:08 | disposition home or self-care (01) ==
LOC: NEPD 23:23 → NEPJ 12-01 13:08
DX: F43.21 Adjustment disorder with depressed mood (principal); F11.10 Opioid abuse, uncomplicated; R82.90 Unspecified abnormal findings in urine
CPT/HCPCS: 80053; 80307; 81001; 84703; 85025; 87086; 99284

== ENCOUNTER 2017-06-09 21:48 | Emergency (ER) | payer OTHER ==
[~2017-06-09] VITALS: Ht 160 cm; Wt 68.2 kg
[~2017-06-09 21:48] MED LIST changes: -BUPR8SUB SL; -CALNTAB PO; +CEPH500C PO; +IBUP1TAB7 PO; -IBUP800T23 PO; -SENN1TAB PO
[2017-06-09 21:50] VITALS: BP 148/90; PULSE 80; RESP 18; TEMP 98.2; O2SAT 98
[2017-06-09 22:57] LABS: BILIRUBIN, URINE NEG (NEG); BLOOD, URINE NEG (NEG); GLUCOSE,URINE NEG (NEG); HYALINE CAST, URINE 1 /lpf (RARE); KETONE, URINE NEG (NEG); MUCUS URINE FEW /lpf (OCC); NITRITE,URINE NEG (NEG); PH, URINE 5.5 (5.0-8.5); SQUAMOUS EPITHELIAL CELL URINE 3 /hpf (0-5); URINE COLOR YELLOW (YELLW/STRAW); URINE LEUKOCYTE ESTERASE TRACE (NEG)
== END 2017-06-09 23:19 | disposition left against medical advice (07) ==
LOC: NEPD 21:48
DX: Z03.89 Encounter for observation for other suspected diseases and conditions ruled out (principal)
CPT/HCPCS: 81001; 84703; 99281

== ENCOUNTER 2017-06-27 17:36 | Emergency (ER) | payer OTHER ==
[~2017-06-27] VITALS: Ht 160 cm; Wt 63.6 kg
[2017-06-27 17:38] VITALS: BP 140/88; PULSE 126; RESP 14; TEMP 98.6; O2SAT 99
[2017-06-27 19:00] LABS: BACTERIA, URINE FEW /hpf; BILIRUBIN, URINE NEG (NEG); BLOOD, URINE NEG (NEG); GLUCOSE,URINE NEG (NEG); KETONE, URINE TRACE mg/dL (NEG); MUCUS URINE FEW /lpf (OCC); NITRITE,URINE NEG (NEG); PH, URINE 6.5 (5.0-8.5); SQUAMOUS EPITHELIAL CELL URINE 22 /hpf (0-5); URINE LEUKOCYTE ESTERASE TRACE (NEG)
[2017-06-27 19:01] LABS: URINE COLOR AMBER (YELLW/STRAW)
--- NOTE | 2017-06-27 20:42 | PD ---
Physical Exam Date Seen by Provider: Jun 27, 2017 Time Seen by Provider: 18:49 Narrative 26 year old female presents to the emergency department requesting to be tested for STDs. She reports pelvic pain, dysuria, vaginal discharge. Current pain is 8/10. Data Data Last Documented VS Vital Signs Date Time Temp Pulse Resp B/P (MAP) Pulse Ox O2 Delivery O2 Flow Rate FiO2 06/27/17 17:38 98.6 126 14 140/88 (105) 99 Orders Orders Ed Urine Pregnancytest Poc (06/27/17 18:06) Urinalysis - C+S If Indicated (06/27/17 18:06) Labs Laboratory Tests Test 06/27/17 18:19 Urine Color JUDAH Urine Turbidity HAZY Urine pH 6.5 Urine Specific [place] 1.016 Urine Protein TRACE mg/dL Urine Glucose (UA) NEG mg/dL Urine Ketones TRACE mg/dL Urine Occult Blood NEG Urine Nitrite NEG Urine Bilirubin NEG Urine Urobilinogen LESS THAN 2.0 MG/DL Urine Leukocyte Esterase TRACE Urine RBC 1 /hpf Urine WBC 1 /hpf Urine Squamous Epithelial Cells 22 /hpf Urine Bacteria FEW /hpf Urine Mucus FEW /lpf Microscopic Urinalysis Comment CULT NOT INDICATED MDM Supervised Visit with YURIY: No Narrative Course 26 year old female presents to the emergency department requesting to be tested for STDs. Patient is initially seen in triage and work up is initiated. Patient left AMA before she could be moved to a medical bed. Diagnosis Primary Impression: Left against medical advice Additional Impression: Vaginal discharge Scripts No Active Prescriptions or Reported Meds Disposition: 07 AGAINST MEDICAL ADVICE Gisell Mooney Jun 27, 2017 20:42
== END 2017-06-27 19:05 | disposition left against medical advice (07) ==
LOC: NED 17:36
DX: N89.8 Other specified noninflammatory disorders of vagina (principal); Z53.21 Procedure and treatment not carried out due to patient leaving prior to being seen by health care provider
CPT/HCPCS: 81001; 84703; 99281

== ENCOUNTER 2017-08-23 06:04 | Inpatient (IN) | payer SELFPAY ==
[~2017-08-23] VITALS: Ht 160 cm; Wt 65.0 kg
[2017-08-23 06:05] VITALS: BP 145/86; PULSE 141; RESP 20; TEMP 98.4; O2SAT 100
[2017-08-23] MEDS ORDERED: PROZ20CA11 PO (06:11)
[2017-08-23] MEDS ORDERED: DIVA250ER PO (06:11)
[2017-08-23 06:39] VITALS: PULSE 109; RESP 20; O2SAT 99
--- NOTE | 2017-08-23 07:09 | PD ---
HPI Chief Complaint: Abnormal Results Time Seen by Provider: 06:59 Travel History International Travel<30 days: No Contact w/Intl Traveler<30days: No Traveled to known affect area: No History of Present Illness HPI 27yo M with PMH of CHANELLE presents to the ED stating she left AMA from [facility] around 11pm last night. Said she was admitted for an infection in her right neck after she injected heroin in her right neck on Sunday. Denies any fever, chest pain, sob, n/v, abdominal pain, focal weakness or numbness. Said they did a CT scan and they were deciding on whether she needs surgery or not. Said she went smoking and they would not let her back. PFSH Past Medical History Medical History: Denies Significant Hx Bipolar Disorder: Yes Anxiety: Yes Depression: Yes ?: Unknown LMP: 07/02/17 : 5 Para: 3 : 2 Past Surgical History Surgical History: No Previous Surgery Social History Alcohol Use: Yes (RARELY) Tobacco Use: Yes Substance Use: No Allergies-Medications (Allergen,Severity, Reaction): Coded Allergies: No Known Allergies (Unverified Adverse Reaction, Unknown, 08/23/17) Reported Meds & Prescriptions Reported Meds & Active Scripts Active Reported Prozac (Fluoxetine HCl) 20 Mg Cap 20 Mg PO HS Depakote ER (Divalproex Sodium) 250 Mg Kaylynn 750 Mg PO BID Review of Systems Except as stated in HPI: all other systems reviewed are Neg Physical Exam Narrative GENERAL: 27yo F not in distress. SKIN: Focused skin assessment warm/dry. HEAD: Atraumatic. Normocephalic. EYES: Pupils equal and round. No scleral icterus. No injection or drainage. ENT: No nasal bleeding or discharge. Mucous membranes pink and moist. No trismus. NECK: +Indurated area in right neck. No fluctuance. No erythema. CARDIOVASCULAR: Regular rate and rhythm. No murmur appreciated. RESPIRATORY: No accessory muscle use. Clear to auscultation. Breath sounds equal bilaterally. GASTROINTESTINAL: Abdomen soft, non-tender, nondistended. MUSCULOSKELETAL: No obvious deformities. No clubbing. No cyanosis. No edema. NEUROLOGICAL: Awake and alert. No obvious cranial nerve deficits. Motor grossly within normal limits in all extremities. Sensation intact. Normal speech. Data Data Last Documented VS Vital Signs Date Time Temp Pulse Resp B/P (MAP) Pulse Ox O2 Delivery O2 Flow Rate FiO2 08/23/17 06:39 109 20 99 Room Air 08/23/17 06:05 98.4 145/86 (105) Orders Orders Blood Culture (08/23/17 07:07) Complete Blood Count With Diff (08/23/17 07:07) Basic Metabolic Panel (Bmp) (08/23/17 07:07) Prothrombin Time / Inr (Pt) (08/23/17 07:07) Act Partial Throm Time (Ptt) (08/23/17 07:07) Lactic Acid Sepsis Protocol (08/23/17 07:07) Bhcg Screen Qualitative (08/23/17 07:09) Sodium Chlor 0.9% 1000 Ml Inj (Ns 1000 M (08/23/17 08:00) Vancomycin Inj (Vancomycin Inj) (08/23/17 09:00) Divalproex Er (Depakote Er) (08/23/17 09:30) Fluoxetine (Prozac) (08/23/17 21:00) Admit Order (Ed Use Only) (08/23/17 09:17) Labs Laboratory Tests Test 08/23/17 07:30 08/23/17 07:33 White Blood Count 9.7 TH/MM3 Red Blood Count 5.27 MIL/MM3 Hemoglobin 12.6 GM/DL Hematocrit 37.4 % Mean Corpuscular Volume 71.1 FL Mean Corpuscular Hemoglobin 23.9 PG Mean Corpuscular Hemoglobin Concent 33.6 % Red Cell Distribution Width 16.0 % Platelet Count 304 TH/MM3 Mean Platelet Volume 7.8 FL Neutrophils (%) (Auto) 76.8 % Lymphocytes (%) (Auto) 14.8 % Monocytes (%) (Auto) 7.6 % Eosinophils (%) (Auto) 0.5 % Basophils (%) (Auto) 0.3 % Neutrophils # (Auto) 7.5 TH/MM3 Lymphocytes # (Auto) 1.4 TH/MM3 Monocytes # (Auto) 0.7 TH/MM3 Eosinophils # (Auto) 0.1 TH/MM3 Basophils # (Auto) 0.0 TH/MM3 CBC Comment DIFF FINAL Differential Comment Prothrombin Time 10.9 SEC Prothromb Time International Ratio 1.1 RATIO Activated Partial Thromboplast Time 25.2 SEC Blood Urea Nitrogen 14 MG/DL Creatinine 0.84 MG/DL Random Glucose 108 MG/DL Calcium Level 9.0 MG/DL Sodium Level 140 MEQ/L Potassium Level 3.5 MEQ/L Chloride Level 103 MEQ/L Carbon Dioxide Level 26.9 MEQ/L Anion Gap 10 MEQ/L Estimat Glomerular Filtration Rate 81 ML/MIN Beta HCG, Qualitative LESS THAN 1 MIU/ML Lactic Acid Level 1.2 mmol/L MDM Medical Decision Making Medical Screen Exam Complete: Yes Emergency Medical Condition: Yes Differential Diagnosis Neck abscess vs. bacteremia Narrative Course 27yo F came to the ED after she AMA from [facility] yesterday night. We were able to obtain records from [facility]. As per the discharge summary, pt was admitted 08/21/17 and discharged 08/22/17 for neck abscess. Pt had CT scan of neck that showed 1.9cm abscess with adjacent findings of rigth EJ thrombophlebitis associated wtih myosititis of the right sternocleidomastoid muscle. She was seen by ID and recommended clindamycin and vancomycin. General surgeon was consulted and recommended no surgical drainage at this time with plans on reevaluating patient. Pt had left AMA night of . Pt is nontoxic appearing and labs reviewed no leukocytosis. Normal lactic acid. negative. I was able to obtain CT soft tissue neck with contrast report that was completed on 08/21/17. It showed 1.9cm abscess intimately associated with focal occlusion of right external jugular vein. Probable myositis changes within the adjacent lateral aspect of the sternocleidomastoid muscle with inflammatory change/cellulitis within the overlying subcutaneous soft tissue. Vancomycin ordered and discussed with Dr. Romero and accepted to his service. Pt informed my nurse that she has to go to court at 1:30pm and is leaving now. AMA: The risks of leaving against medical advice without further evaluation treatment were discussed with the patient. These risks include cardiac dysfunction, cardiac dysrhythmia, possible heart attack, possible stroke or . The patient indicated understanding of these risks and appeared to have the capacity to make this decision. I am not sure why she even came here. Pt did not want to wait for vancomycin or me to write her prescriptions for antibiotics. Diagnosis Primary Impression: Neck abscess Patient Instructions: General Instructions Departure Forms: Tests/Procedures Additional Instructions: Please return to the ED if you change your mind. Pt physically left the ED before any prescriptions could be written. IV was removed by my nurse. Med/Other Pt SpecificInfo: No Change to Meds Disposition: 07 AGAINST MEDICAL ADVICE Condition: Stable Dennise Aguilar DO Aug 23, 2017 07:09
[2017-08-23 07:47] LABS: AUTOMATED NEUTROPHIL # 7.5 TH/MM3 (1.8-7.7); BASOPHIL % 0.3 % (0.0-2.0); EOSINOPHIL # 0.1 TH/MM3 (0-0.4); EOSINOPHIL % 0.5 % (0.0-4.0); HEMATOCRIT 37.4 % (35.0-46.0); HEMOGLOBIN 12.6 GM/DL (11.6-15.3); LYMPH % 14.8 % (9.0-44.0); LYMPHOCYTE # 1.4 TH/MM3 (1.0-4.8); MEAN CELL VOLUME 71.1 FL (80.0-100.0); MEAN CORPUSCULAR HEMOGLOBIN 23.9 PG (27.0-34.0); MEAN CORPUSCULAR HGB CONC 33.6 % (32.0-36.0); MEAN PLATELET VOLUME 7.8 FL (7.0-11.0); MONO % 7.6 % (0.0-8.0); MONOCYTE # 0.7 TH/MM3 (0-0.9); NEUT % 76.8 % (16.0-70.0); PLATELET COUNT 304 TH/MM3 (150-450); RED BLOOD COUNT 5.27 MIL/MM3 (4.00-5.30); WHITE BLOOD COUNT 9.7 TH/MM3 (4.0-11.0)
[2017-08-23 07:55] LABS: INTERNATIONAL NORMALIZED RATIO 1.1 RATIO; PROTHROMBIN TIME - PATIENT 10.9 SEC (9.8-11.6)
[2017-08-23] MEDS ORDERED: SODIUM CHLOR 0.9% 1000 ML INJ 1,000 ML IV ONE (08:00)
[2017-08-23 08:12] LABS: BICARBONATE 26.9 MEQ/L (21.0-32.0); CREATININE 0.84 MG/DL (0.50-1.00)
[2017-08-23] MEDS ORDERED: VANCOMYCIN INJ 1,000 MG in SODIUM CHLOR 0.9% 250 ML INJ 250 ML IV ONE (09:00)
[2017-08-23] MEDS ORDERED: SODIUM CHLOR 0.9% 1000 ML INJ 1,000 ML IV SCH (09:17)
[2017-08-23 09:27] VITALS: BP 132/85; PULSE 102; RESP 20; TEMP 98.3; O2SAT 99
[2017-08-23] MEDS ORDERED: cloNIDine HCL 0.1 MG TAB PO PRN (09:30)
[2017-08-23] MEDS ORDERED: DIVALPROEX SODIUM E.R. 250 MG TAB PO SCH (09:30)
[2017-08-23] MEDS ORDERED: ACETAMINOPHEN 325 MG TAB PO PRN ×2 (09:30)
[2017-08-23] MEDS ORDERED: NALOXONE HCL 0.4 MG/ML AMP IV PUSH PRN (09:30)
[2017-08-23] MEDS ORDERED: SODIUM CHLORIDE 0.9% FLUSH 10 ML FLUSH IV FLUSH PRN (09:30)
[2017-08-23] MEDS ORDERED: Vancomycin Consult Pharmacy 1 EA OTHER SCH (09:30)
[2017-08-23] MEDS ORDERED: ONDANSETRON HCL 4 MG/2 ML VIAL IVP PRN (09:30)
[2017-08-23] MEDS ORDERED: ENOXAPARIN SODIUM 40 MG/0.4 ML SYRINGE SQ SCH (09:30)
[2017-08-23] MEDS ORDERED: FLUoxetine HCL 20 MG CAP PO SCH (21:00)
[2017-08-23] MEDS ORDERED: SODIUM CHLORIDE 0.9% FLUSH 10 ML FLUSH IV FLUSH SCH (21:00)
[2017-08-23] MEDS ORDERED: DOCUSATE SODIUM 50 MG/SENNA 8.6 MG TAB PO SCH (21:00)
== END 2017-08-23 09:32 | disposition left against medical advice (07) | DRG 603 ==
LOC: NEPC 06:04 → NEDA 09:18
PROVIDERS: ADMIT Hospitalist; ATTEND Hospitalist
DX: L02.11 Cutaneous abscess of neck (principal); F31.9 Bipolar disorder, unspecified; F41.9 Anxiety disorder, unspecified; M60.9 Myositis, unspecified; L03.221 Cellulitis of neck; F19.10 Other psychoactive substance abuse, uncomplicated; Z72.0 Tobacco use
CPT/HCPCS: 80048; 83605; 84703; 85025; 85610; 85730; 87040; J7030